=== PATIENT | female | born 1990 | race Two or more races ===

== ENCOUNTER 2017-10-06 21:08 | Emergency (ER) | payer SELFPAY ==
[~2017-10-06] VITALS: Ht 157.5 cm; Wt 80.0 kg
[2017-10-06 21:33] VITALS: BP 113/68
== END 2017-10-07 00:30 | disposition left against medical advice (07) ==
LOC: ER 21:08
DX: R51 Headache (principal); Z53.21 Procedure and treatment not carried out due to patient leaving prior to being seen by health care provider